=== PATIENT | female | born 1980 | race Hispanic/Latino ===

== ENCOUNTER → 2023-10-27 | Emergency (ER) | payer OTHER ==
[2023-10-27 18:58] LABS: Absolute Lymphocytes (CBC) 1.8 K/uL (0.7-4.9); Hematocrit 41.1 % (36.0-45.0); Lymphocytes % 22.1 % (15.3-44.8); MCV 89.9 fL (80-100); MPV 6.8 fL (7.6-11.3); Platelets 372 thou/uL (152-406); RBC Red Blood Cell Count 4.57 M/uL (3.86-4.86)
[2023-10-27 19:15] LABS: Potassium 3.5 mEq/L (3.5-5.1); Troponin High Sensitivity 3.4 pg/mL (<58.9)
--- NOTE | 2023-10-27 19:43 | RAD REPORT ---
EXAM DESCRIPTION: Jevon Single View10/27/2023 7:33 pm CLINICAL HISTORY: CHEST PAIN COMPARISON: No comparisons TECHNIQUE: Portable AP view of the chest. FINDINGS: The lungs are clear. No pneumothorax or effusion. The cardiomediastinal contours are unrem arkable. IMPRESSION: No acute cardiopulmonary process.
--- NOTE | 2023-10-27 20:31 | ER ---
Nurse's Notes [facility] Name: Ivonne Iqbal Age: 43 yrs Sex: Female : 1980 Arrival Date: 10/27/2023 Time: 18:05 Bed 20 Private MD: Diagnosis: Chest pain, unspecified Presentation: 10/27 18:15 Chief complaint: Patient states: had covid shot yesterday and started having headache, ko1 body aches. chest pain and short of breath while laying down, when she stands up its better. Coronavirus screen: chills, difficulty breathing, headache, muscle pain, shortness of breath, Client presents with at least one sign or symptom that may indicate coronavirus-19. Standard/surgical mask placed on the client. Ebola Screen: No symptoms or risks identified at this time. Initial Sepsis Screen: Does the patient meet any 2 criteria? No. Patient's initial sepsis screen is negative. Does the patient have a suspected source of infection? No. Patient's initial sepsis screen is negative. Risk Assessment: Do you want to hurt yourself or someone else? Patient reports no desire to harm self or others. Onset of symptoms was October 27, 2023. 18:15 Method Of Arrival: Ambulatory ko1 18:15 Acuity: MARY 4 ko1 Triage Assessment: 18:17 General: Appears in no apparent distress. uncomfortable, Behavior is calm, cooperative, ko1 appropriate for age. Pain: Complains of pain in chest. Cardiovascular: Reports chest pain, shortness of breath, when laying down. Historical: - Allergies: 18:17 PENICILLINS; ko1 - PMHx: 18:17 Hypothyroidism; ko1 - PSHx: 18:17 nasal surgery; ko1 - Immunization history:: Adult Immunizations up to date, Client reports receiving the 2nd dose of the Covid vaccine, Date received: October 27, 2023. - Social history:: Smoking status: Patient denies any tobacco usage or history of. Screenin:31 [facility] ED Fall Risk Assessment (Adult) History of falling in the last 3 months, tm6 including since admission No falls in past 3 months (0 pts). Abuse screen: Denies threats or abuse. Denies injuries from another. Nutritional screening: No deficits noted. Tuberculosis screening: No symptoms or risk factors identified. Assessment: 19:31 General: Appears in no apparent distress. General: Behavior is calm, cooperative. Pain: tm6 Complains of pain in chest Pain does not radiate. Quality of pain is described as tightness Pain began 1 day ago. Neuro: Level of Consciousness is awake, alert, obeys commands, Oriented to person, place, time, situation. Cardiovascular: Capillary refill < 3 seconds Patient's skin is warm and dry. Respiratory: Airway is patent Respiratory effort is even, unlabored, Respiratory pattern is regular, symmetrical. GI: Abdomen is flat, non-distended. : No signs and/or symptoms were reported regarding the genitourinary system. EENT: No signs and/or symptoms were reported regarding the EENT system. Derm: No signs and/or symptoms reported regarding the dermatologic system. Musculoskeletal: No signs and/or symptoms reported regarding the musculoskeletal system. 20:25 Reassessment: Patient appears in no apparent distress at this time. No changes from tm6 previously documented assessment. 20:51 Reassessment: Patient appears in no apparent distress at this time. No changes from tm6 previously documented assessment. Patient and/or family updated on plan of care and expected duration. Pain level reassessed. Patient is alert, oriented x 3, equal unlabored respirations, skin warm/dry/pink. Vital Signs: 18:15 BP 110 / 64; Pulse 83; Resp 15; Temp 98.3; Pulse Ox 100% ; ko1 19:31 BP 103 / 64; Pulse 70; Resp 16; Pulse Ox 98% on R/A; Pain 8/10; tm6 20:25 BP 105 / 70; Pulse 68; Resp 20; Pulse Ox 98% on R/A; tm6 20:50 BP 108 / 67; Pulse 78; Resp 20; Temp 98(TE); Pulse Ox 99% on R/A; Pain 0/10; tm6 19:31 Pain Scale: Adult tm6 20:50 Pain Scale: Adult tm6 ED Course: 18:09 Patient arrived in ED. im 18:16 Radha Kwok FNP-C is PHCP. kb 18:16 Dat Benavidez MD is Attending Physician. kb 18:17 Triage completed. ko1 18:17 Arm band placed on right wrist. Patient placed in waiting room, Patient notified of ko1 wait time. 18:56 Basic Metabolic Panel Sent. bc6 18:56 CBC with Diff Sent. bc6 18:56 NT PRO-BNP Sent. bc6 18:56 Troponin HS Sent. bc6 18:57 Inserted saline lock: 20 gauge in left antecubital area, using aseptic technique. Blood bc6 collected. 19:26 Vika Pollack, RN is Primary Nurse. tm6 19:31 Patient has correct armband on for positive identification. Placed in gown. Bed in low tm6 position. Call light in reach. Side rails up X2. Provided Education on: plan of care. Client placed on continuous cardiac and pulse oximetry monitoring. NIBP monitoring applied. resident engineer on. Door closed. Noise minimized. Lights dimmed. Warm blanket given. 19:31 No provider procedures requiring assistance completed. Patient maintains SpO2 tm6 saturation greater than 95% on room air. 19:35 XRAY Chest (1 view) In Process Unspecified. EDMS 20:51 IV discontinued, intact, bleeding controlled, No redness/swelling at site. Pressure tm6 dressing applied. Administered Medications: No medications were administered Medication: 19:31 VIS not applicable for this client. tm6 Outcome: 20:31 Discharge ordered by . kb 20:51 Discharged to home ambulatory, tm6 20:51 Condition: stable 20:51 Discharge instructions given to patient, Instructed on discharge instructions, follow up and referral plans. Demonstrated understanding of instructions, follow-up care, 20:51 Patient left the ED. tm6 Signatures: Dispatcher [employer] EDMS Radha Kwok, HEAD PIECE ASSEMBLER-C HEAD PIECE ASSEMBLER-Caren Malik, RN RN ko1 Sahra Aj bc6 Yee Rodriguez Tawney, RN RN tm6
--- NOTE | 2023-10-27 20:31 | EDPHYS ---
Physician Documentation [facility] Name: Ivonne Iqbal Age: 43 yrs Sex: Female : 1980 Arrival Date: 10/27/2023 Time: 18:05 Bed 20 Private MD: ED Physician Dat Benavidez HPI: 10/27 20:42 This 43 yrs old Female presents to ER via Ambulatory with complaints of Chest kb Pain - while laying down, Shortness Of Breath - while laying down. 20:42 Patient is a 43-year-old female who presents for chest pain and shortness of breath kb when laying down that started last night. States she had her COVID shot yesterday afternoon. States she had similar symptoms when she had COVID last time. Denies chest pain or shortness of breath at this time.. Historical: - Allergies: 18:17 PENICILLINS; ko1 - PMHx: 18:17 Hypothyroidism; ko1 - PSHx: 18:17 nasal surgery; ko1 - Immunization history:: Adult Immunizations up to date, Client reports receiving the 2nd dose of the Covid vaccine, Date received: October 27, 2023. - Social history:: Smoking status: Patient denies any tobacco usage or history of. ROS: 20:42 Constitutional: Negative for fever, chills, and weight loss, kb 20:42 Cardiovascular: Positive for chest pain, 20:42 Respiratory: Positive for shortness of breath, 20:42 All other systems are negative, Exam: 20:42 Constitutional: This is a well developed, well nourished patient who is awake, alert, kb and in no acute distress. Head/Face: Normocephalic, atraumatic. ENT: Moist Mucous membranes Cardiovascular: Regular rate Respiratory: Respirations even and unlabored. No increased work of breathing. Talking in full sentences Abdomen/GI: Soft, non-tender. No distention Skin: Warm, dry with normal turgor. Normal color. MS/ Extremity: Pulses equal, no cyanosis. Neurovascular intact. Full, normal range of motion. Neuro: Awake and alert, GCS 15, oriented to person, place, time, and situation. Moves all extremities. Normal gait. Vital Signs: 18:15 BP 110 / 64; Pulse 83; Resp 15; Temp 98.3; Pulse Ox 100% ; ko1 19:31 BP 103 / 64; Pulse 70; Resp 16; Pulse Ox 98% on R/A; Pain 8/10; tm6 20:25 BP 105 / 70; Pulse 68; Resp 20; Pulse Ox 98% on R/A; tm6 20:50 BP 108 / 67; Pulse 78; Resp 20; Temp 98(TE); Pulse Ox 99% on R/A; Pain 0/10; tm6 19:31 Pain Scale: Adult tm6 20:50 Pain Scale: Adult tm6 MDM: 18:18 Patient medically screened. kb 20:42 Differential diagnosis: Abnormal EKG, MS, CAD, chest wall pain, reaction to kb immunization. Data reviewed: vital signs, nurses notes. Consideration of Admission/Observation Escalation of care including admission/observation considered. Admission considered for chest pain that chest pain has resolved, heart score 0. Counseling: I had a detailed discussion with the patient and/or guardian regarding the historical points, exam findings, and any diagnostic results supporting the discharge/admit diagnosis, lab results, radiology results, the need for outpatient follow up, a family practitioner, to return to the emergency department if symptoms worsen or persist or if there are any questions or concerns that arise at home. 10/27 18:20 Order name: Basic Metabolic Panel; Complete Time: 19:19 kb 10/27 18:20 Order name: CBC with Diff; Complete Time: 19:03 kb 10/27 18:20 Order name: NT PRO-BNP; Complete Time: 19:19 kb 10/27 18:20 Order name: Troponin HS; Complete Time: 19:19 kb 10/27 18:20 Order name: XRAY Chest (1 view); Complete Time: 19:45 kb 10/27 18:20 Order name: EKG; Complete Time: 18:21 kb 10/27 18:20 Order name: Cardiac monitoring; Complete Time: 19:28 kb 10/27 18:20 Order name: EKG - Nurse/Tech; Complete Time: 18:56 kb 10/27 18:20 Order name: IV Saline Lock; Complete Time: 18:56 kb 10/27 18:20 Order name: Labs collected and sent; Complete Time: 18:56 kb 10/27 18:20 Order name: O2 Per Protocol; Complete Time: 19:28 kb 10/27 18:20 Order name: O2 Sat Monitoring; Complete Time: 19:28 kb Administered Medications: No medications were administered Disposition Summary: 10/27/23 20:31 Discharge Ordered Notes: Location: Home kb Condition: Stable kb Diagnosis - Chest pain, unspecified kb Followup: kb - With: Emergency Department - When: As needed - Reason: Worsening of condition Followup: kb - With: Private Physician - When: 2 - 3 days - Reason: Recheck today's complaints, Continuance of care, Re-evaluation by your physician Discharge Instructions: - Discharge Summary Sheet kb - Nonspecific Chest Pain, Adult, Prma-ad-Ohti kb Forms: - Medication Reconciliation Form kb - Thank You Letter kb - Antibiotic Education kb - Prescription Opioid Use kb - Patient Portal Instructions kb - Leadership Thank You Letter kb Signatures: Dispatcher [employer] Radha Lambert, FINISH PHOTOGRAPHER-C FINISH PHOTOGRAPHER-Caren Malik, RN RN ko1
--- NOTE | 2023-10-28 13:23 | EKG ---
Test Date: 2023-10-27 Test Time: 18:54:14 Upsetter: OSKAR MEASUREMENT RESULTS: Intervals: Rate: 75 VA: 146 QRSD: 78 QT: 394 QTc: 439 Cody: P: 55 VA: 146 QRS: -55 T: 56 INTERPRETIVE STATEMENTS: Normal sinus rhythm Left anterior fascicular block Cannot rule out Anterior infarct, age undetermined Abnormal ECG No previous ECG available for comparison Electronically Signed On 10-28-23 13:21:50 QUALITY SYSTEMS ENGINEER by [facility]
== END ==
LOC: ER 18:05
DX: R07.9 Chest pain, unspecified (principal); E03.9 Hypothyroidism, unspecified; Z88.0 Allergy status to penicillin
CPT/HCPCS: 36415; 71045; 80048; 83880; 84484; 85025; 93005

== ENCOUNTER 2023-12-29 18:13 | Emergency (ER) | payer BC ==
[2023-12-29] MEDS ORDERED: FAMOTIDINE 20 MG/2 ML VIAL IV ONE (18:52)
[2023-12-29] MEDS ORDERED: NA CHLORIDE 0.9% 1,000 ML ONE (18:52)
[2023-12-29] MEDS ORDERED: ONDANSETRON 4 MG/2 ML VIAL ONE (18:52)
[2023-12-29] MEDS ORDERED: KETOROLAC 30 MG/ML INJ ONE (18:52)
[2023-12-29 19:18] LABS: Urine Bacteria <20 /HPF (<20); Urine Bilirubin NEGATIVE (Negative); Urine Blood Negative (Negative); Urine Clarity Extremely Turbid (Clear); Urine Color Colorless (Yellow); Urine Culture Reflex Order NOT NEEDED; Urine Glucose NEGATIVE (Negative); Urine Ketones NEGATIVE (Negative); Urine Microscopic Reflex YN ORDER UMIC; Urine Nitrite NEGATIVE (Negative); Urine Protein NEGATIVE (Negative); Urine Urobilinogen Normal (Normal); Urine pH 6.5 (5.0-7.0)
[2023-12-29 19:26] LABS: Absolute Basophils 0.1 K/uL (0-0.5); Absolute Eosinophils 0.2 K/uL (0-0.5); Absolute Lymphocytes (CBC) 3.6 K/uL (0.7-4.9); Absolute Monocytes 0.7 K/uL (0.1-1.3); Absolute Neutrophil 5.4 K/uL (1.8-8.0); Basophils % 0.9 % (0-1.3); Eosinophils % 1.8 % (0-4.4); Hematocrit 39.6 % (36.0-45.0); Hemoglobin 13.5 g/dL (12.0-15.0); Lymphocytes % 36.4 % (15.3-44.8); MCH 30.6 pg (27.0-35.0); MCHC 34.2 g/dL (32.0-36.0); MCV 89.6 fL (80-100); MPV 7.4 fL (7.6-11.3); Monocytes % 6.6 % (3.3-12.3); Neutrophils % 54.3 % (41.7-73.7); Nucleated Red Blood Cells % 0.1 % (0-0); Platelets 378 thou/uL (152-406); RBC Red Blood Cell Count 4.42 M/uL (3.86-4.86); Red Cell Distribution Width 13.4 % (12.1-15.2)
[2023-12-29 20:04] LABS: Albumin 3.5 g/dL (3.4-5.0); Albumin/Globulin Ratio 0.9 (1.1-1.8); Anion Gap 8.6 mEq/L (5.0-15.0); Bilirubin Total 0.7 mg/dL (0.2-1.0); Potassium 3.6 mEq/L (3.5-5.1); Protein, Total 7.5 g/dL (6.4-8.2)
--- NOTE | 2023-12-29 20:11 | EDPHYS ---
Physician Documentation [facility] Name: Ivonne Iqbal Age: 43 yrs Sex: Female : 1980 Arrival Date: 12/29/2023 Time: 18:13 Bed 4 Private MD: ED Physician Brandon Diaz HPI: 12/28 19:01 This 43 yrs old Female presents to ER via Ambulatory with complaints of kb Abdominal Pain, Vomiting. 19:01 Pt reports n/v/d and diffuse abd pain for 2 days. Denies fever. States she hasn't been kb able to tolerate anything by mouth. 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 - Infectious Disease History:: Denies. - Social history:: Smoking status: Patient denies any tobacco usage or history of. ROS: 19:01 Constitutional: As per HPI kb Exam: 19:01 Constitutional: This is a well developed, well nourished patient who is awake, alert, kb and in no acute distress. Head/Face: Normocephalic, atraumatic. ENT: Moist Mucous membranes Cardiovascular: Regular rate Respiratory: Respirations even and unlabored. No increased work of breathing. Talking in full sentences Abdomen/GI: Soft, non-tender. No distention Skin: Warm, dry with normal turgor. Normal color. MS/ Extremity: Pulses equal, no cyanosis. Neurovascular intact. Full, normal range of motion. Neuro: Awake and alert, GCS 15, oriented to person, place, time, and situation. Moves all extremities. Normal gait. Vital Signs: 18:29 BP 109 / 70; Pulse 67; Resp 16; Temp 97.5(TE); Pulse Ox 100% ; Weight 78.02 kg; Height nj1 5 ft. 3 in. ; Pain 10/10; 19:02 BP 104 / 70; Pulse 67; Resp 15 S; Pulse Ox 100% on R/A; Pain 10/10; kc6 20:15 BP 108 / 67; Pulse 66; Resp 18; Temp 98.1; Pulse Ox 98% on R/A; Pain 0/10; pf1 18:29 Body Mass Index 30.47 (78.02 kg, 160.02 cm) nj1 18:29 Pain Scale: Adult nj1 19:02 Pain Scale: Adult kc6 20:15 Pain Scale: Adult pf1 MDM: 18:22 Patient medically screened. kb 20:02 Differential diagnosis: gastritis, gastroesophageal reflux disease, non-specific abd kb pain, urinary tract infection, viral gastroenteritis. Data reviewed: vital signs, nurses notes. 20:09 Test considered but Not performed: CT: ct abd considered, but pt is nontoxic in kb appearance, no abd tenderness, afebrile. Educated to return for worsening symptoms, fever. Counseling: I had a detailed discussion with the patient and/or guardian regarding the historical points, exam findings, and any diagnostic results supporting the discharge/admit diagnosis, lab results, the need for outpatient follow up, a family practitioner, to return to the emergency department if symptoms worsen or persist or if there are any questions or concerns that arise at home. 12/28 18:30 Order name: CBC with Diff; Complete Time: 19:29 kb 12/28 18:30 Order name: CMP; Complete Time: 20:05 kb 12/28 18:30 Order name: Lipase; Complete Time: 20:05 kb 12/28 18:30 Order name: Test, Urine; Complete Time: 19:24 kb 12/28 18:30 Order name: Urinalysis w/ reflexes; Complete Time: 19:24 kb 12/28 18:30 Order name: IV Saline Lock; Complete Time: 18:51 kb 12/28 18:30 Order name: Labs collected and sent; Complete Time: 18:51 kb Administered Medications: 18:59 Drug: NS 0.9% IV 1000 ml IV at 1 bolus Per protocol; 1000 mL bolus Route: IV; Rate: 1 kc6 bolus; Site: right antecubital; 19:50 Follow up: Response: No adverse reaction; Marked relief of symptoms; IV Status: pf1 Completed infusion; IV Intake: 1000ml 18:59 Drug: Famotidine IVP 20 mg IVP once; dilute with 10 mL 0.9% NaCl; give over 2 minutes kc6 Route: IVP; Site: right antecubital; 19:40 Follow up: Response: No adverse reaction; Marked relief of symptoms; Pain is decreased pf1 18:59 Drug: TORadol - Ketorolac IVP 15 mg IVP once Route: IVP; Site: right antecubital; kc6 19:50 Follow up: Response: No adverse reaction; Marked relief of symptoms; Pain is decreased pf1 18:59 Drug: Ondansetron IVP 4 mg IVP once; over 2 minutes Route: IVP; Site: right antecubital;kc6 19:50 Follow up: Response: No adverse reaction; Marked relief of symptoms pf1 Disposition Summary: 12/29/23 20:10 Discharge Ordered Notes: Location: Home kb Condition: Stable kb Diagnosis - Nausea with vomiting, unspecified kb - Diarrhea, unspecified kb Followup: kb - With: Emergency Department - When: As needed - Reason: Worsening of condition Followup: kb - With: Private Physician - When: 2 - 3 days - Reason: Recheck today's complaints, Continuance of care, Re-evaluation by your physician Discharge Instructions: - Discharge Summary Sheet kb - Viral Gastroenteritis, Adult, [id number] kb Forms: - Medication Reconciliation Form kb - Thank You Letter kb - Antibiotic Education kb - Prescription Opioid Use kb - Patient Portal Instructions kb - Leadership Thank You Letter kb - Work release form pf1 Prescriptions: - Zofran 4 mg Oral tablet - take 1 tablet ORAL route every 6 hours As needed; 12 tablet; Refills: 0, kb Product Selection Permitted - dicyclomine 20 mg Oral tablet - take 1 tablet ORAL route 4 times per day As needed; 20 tablet; Refills: 0, kb Product Selection Permitted Signatures: Dispatcher [employer] Radha Lambetr FNP-C FNP-Abby Velasquez RN RN kc6 Bonnie Grover RN RN nj1 Izzy Bills RN pf1
--- NOTE | 2023-12-29 20:11 | ER ---
Nurse's Notes [facility] Name: Ivonne Iqbal Age: 43 yrs Sex: Female : 1980 Arrival Date: 12/29/2023 Time: 18:13 Bed 4 Private MD: Diagnosis: Nausea with vomiting, unspecified;Diarrhea, unspecified Presentation: 12/28 18:29 Chief complaint: Patient states: Nauseous, vomiting and diarrhea for 3 days. Unable to nj1 keep anything down. Coronavirus screen: Vaccine status: Patient reports receiving the 2nd dose of the covid vaccine. Ebola Screen: Patient denies travel to an Ebola-affected area in the 21 days before illness onset. Risk Assessment: Do you want to hurt yourself or someone else? Patient reports no desire to harm self or others. Onset of symptoms was December 27, 2023. 18:29 Method Of Arrival: Ambulatory [facility] 18:29 Acuity: MARY 3 [facility] 18:29 Initial Sepsis Screen: Does the patient meet any 2 criteria? No. Patient's initial [facility] sepsis screen is negative. Does the patient have a suspected source of infection? No. Patient's initial sepsis screen is negative. 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 - Infectious Disease History:: Denies. - Social history:: Smoking status: Patient denies any tobacco usage or history of. Screenin:59 [facility] ED Fall Risk Assessment (Adult) History of falling in the last 3 months, kc6 including since admission No falls in past 3 months (0 pts) Confusion or Disorientation No (0 pts) Intoxicated or Sedated No (0 pts) Impaired Gait No (0 pts) Mobility Assist Device Used No (0 pt) Altered Elimination No (0 pt) Score/Fall Risk Level 0 - 2 = Low Risk. Abuse screen: Denies threats or abuse. Denies injuries from another. Nutritional screening: No deficits noted. Tuberculosis screening: No symptoms or risk factors identified. Assessment: 19:01 General: Appears in no apparent distress. comfortable, well groomed, well developed, kc6 Behavior is calm, cooperative, appropriate for age. Pain: Complains of pain in epigastric area and umbilical area Pain does not radiate. Pain currently is 10 out of 10 on a pain scale. Neuro: Level of Consciousness is awake, alert, obeys commands, Oriented to person, place, time, situation, Appropriate for age. Cardiovascular: Capillary refill < 3 seconds. Respiratory: Airway is patent Trachea midline Respiratory effort is even, unlabored, Respiratory pattern is regular, symmetrical. GI: Abdomen is flat, non-distended, Bowel sounds present X 4 quads. Abd is soft X 4 quads Abdomen is tender to palpation in epigastric area and umbilical area Reports upper abdominal pain, diarrhea, nausea, vomiting. : No signs and/or symptoms were reported regarding the genitourinary system. Urine is clear. EENT: No signs and/or symptoms were reported regarding the EENT system. Derm: No signs and/or symptoms reported regarding the dermatologic system. Skin is intact, is healthy with good turgor, Skin is pink, warm \T\ dry. Musculoskeletal: No signs and/or symptoms reported regarding the musculoskeletal system. Circulation, motion, and sensation intact. Capillary refill < 3 seconds, Range of motion: intact in all extremities. 20:15 Reassessment: Patient appears in no apparent distress at this time. Patient and/or pf1 family updated on plan of care and expected duration. Pain level reassessed. Patient is alert, oriented x 3, equal unlabored respirations, skin warm/dry/pink. Patient states feeling better. Patient states symptoms have improved. Vital Signs: 18:29 BP 109 / 70; Pulse 67; Resp 16; Temp 97.5(TE); Pulse Ox 100% ; Weight 78.02 kg; Height nj1 5 ft. 3 in. ; Pain 10/10; 19:02 BP 104 / 70; Pulse 67; Resp 15 S; Pulse Ox 100% on R/A; Pain 10/10; kc6 20:15 BP 108 / 67; Pulse 66; Resp 18; Temp 98.1; Pulse Ox 98% on R/A; Pain 0/10; pf1 18:29 Body Mass Index 30.47 (78.02 kg, 160.02 cm) nj1 18:29 Pain Scale: Adult nj1 19:02 Pain Scale: Adult kc6 20:15 Pain Scale: Adult pf1 ED Course: 18:15 Patient arrived in ED. mr 18:22 Radha KwokRADHA is [facility]. kb 18:22 Brandon Diaz is Attending Physician. kb 18:31 Triage completed. nj1 18:31 Arm band placed on right wrist. nj1 18:42 Abby Ochoa RN is Primary Nurse. kc6 18:53 Inserted saline lock: 22 gauge in right antecubital area, using aseptic technique. kc6 Blood collected. 18:59 Patient has correct armband on for positive identification. Bed in low position. Call kc6 light in reach. Side rails up X 1. Client placed on continuous cardiac and pulse oximetry monitoring. NIBP monitoring applied. Door closed. Lights dimmed. Warm blanket given. 18:59 Test, Urine Sent. kc6 18:59 Urinalysis w/ reflexes Sent. kc6 19:02 Report given to ALEXANDRIA Mullen. kc6 20:27 Provided Education on: prescriptions and lab results. pf1 20:27 No provider procedures requiring assistance completed. IV discontinued, intact, pf1 bleeding controlled, No redness/swelling at site. Pressure dressing applied. Administered Medications: 18:59 Drug: NS 0.9% IV 1000 ml IV at 1 bolus Per protocol; 1000 mL bolus Route: IV; Rate: 1 kc6 bolus; Site: right antecubital; 19:50 Follow up: Response: No adverse reaction; Marked relief of symptoms; IV Status: pf1 Completed infusion; IV Intake: 1000ml 18:59 Drug: Famotidine IVP 20 mg IVP once; dilute with 10 mL 0.9% NaCl; give over 2 minutes kc6 Route: IVP; Site: right antecubital; 19:40 Follow up: Response: No adverse reaction; Marked relief of symptoms; Pain is decreased pf1 18:59 Drug: TORadol - Ketorolac IVP 15 mg IVP once Route: IVP; Site: right antecubital; kc6 19:50 Follow up: Response: No adverse reaction; Marked relief of symptoms; Pain is decreased pf1 18:59 Drug: Ondansetron IVP 4 mg IVP once; over 2 minutes Route: IVP; Site: right antecubital;kc6 19:50 Follow up: Response: No adverse reaction; Marked relief of symptoms pf1 Medication: 20:27 VIS not applicable for this client. pf1 Intake: 19:50 IV: 1000ml; Total: 1000ml. pf1 Outcome: 20:10 Discharge ordered by MD. montgomery 20:27 Discharged to home ambulatory, pf1 20:27 Condition: improved 20:27 Discharge instructions given to patient, Instructed on discharge instructions, follow up and referral plans. Demonstrated understanding of instructions, follow-up care, medications, Prescriptions given X 2, 20:33 Patient left the ED. pf1 Signatures: Radha Kwok, AGILE DEVELOPER-C AGILE DEVELOPER-Ckb Mercedes Pulido, Reg Reg mr Abby Ochoa, RN RN kc6 Izzy Bills, [place] RN pf1 Bonnie Grover RN RN nj1 Corrections: (The following items were deleted from the chart) 18:32 18:29 BP 109 / 70; Pulse 67bpm; Resp 16bpm; Pulse Ox 100%; 78.02 kg; Height 5 ft. 3 nj1 in.; BMI: 30.4; Pain 10, Adult; nj1
[2023-12-29 23:15] VITALS: BP 108/67; TEMP 98.1; O2SAT 98
== END 2023-12-29 20:33 | disposition home or self-care (01) ==
LOC: ER 18:13
DX: R11.2 Nausea with vomiting, unspecified (principal); R19.7 Diarrhea, unspecified; Z88.0 Allergy status to penicillin
CPT/HCPCS: 85025; 81001; 36415; 81025; 83690; 80053; J2405; J7030